=== PATIENT | male | born 1985 | race Two or more races ===

== ENCOUNTER 2018-12-25 12:36 | Emergency (ER) | payer BC, OTHER ==
[~2018-12-25] VITALS: Ht 165.1 cm; Wt 63.5 kg
[2018-12-25 12:46] VITALS: BP 136/88
[2018-12-25] MEDS ORDERED: LIDOCAINE 1% HCL (LOCAL ANESTH.) INJ 20ML MDV IJ ONE (14:15)
== END 2018-12-25 15:19 | disposition home or self-care (01) ==
LOC: ER 12:36
DX: S01.81XA Laceration without foreign body of other part of head, initial encounter (principal); W22.8XXA Striking against or struck by other objects, initial encounter; Y93.89 Activity, other specified; Y99.8 Other external cause status; Y92.89 Other specified places as the place of occurrence of the external cause
CPT/HCPCS: 12013; 99283; J2001